=== PATIENT | female | born 1985 | race Caucasian/White ===

== ENCOUNTER → 2021-08-07 | Outpatient (CLI) | payer OTHER ==
[~2021-08-07] MED LIST: DEXT15TA PO; MELA10CA PO
[2021-08-07 13:55] LABS: BASO # 0.1 x10^3/uL (0.0-0.2); BASO % 1 % (0-3); EOS # 0.1 x10^3/uL (0.0-0.7); EOS % 1 % (0-3); HEMATOCRIT 39.2 % (36.0-47.0); HEMOGLOBIN 13.5 g/dL (12.0-15.5); LYMPH # 2.8 x10^3/uL (1.0-4.8); LYMPH % 36 % (24-48); MEAN CORPUSCULAR HEMOGLOBIN 29 pg (25-35); MEAN CORPUSCULAR HGB CONC 34 g/dL (31-37); MEAN CORPUSCULAR VOLUME 84 fL (79-100); MONO # 0.6 x10^3/uL (0.0-1.1); MONO % 7 % (0-9); NEUT # 4.4 x10^3/uL (1.8-7.7); NEUT % 55 % (31-73); PLATELET COUNT 373 x10^3/uL (140-400); RED BLOOD COUNT 4.65 x10^6/uL (3.50-5.40); RED CELL DISTRIBUTION WIDTH 13.8 % (11.5-14.5); WHITE BLOOD COUNT 7.9 x10^3/uL (4.0-11.0)
[2021-08-07 14:02] LABS: BACTERIA,URINE FEW /HPF (0-FEW); RBC,URINE 0 /HPF (0-2); WBC,URINE OCC /HPF (0-4)
[2021-08-07 14:17] LABS: ALBUMIN 3.8 g/dL (3.4-5.0); CALCIUM 8.8 mg/dL (8.5-10.1); CREATININE 0.8 mg/dL (0.6-1.0); GFR 81.2; POTASSIUM 3.7 mmol/L (3.5-5.1); TOTAL BILIRUBIN 0.6 mg/dL (0.2-1.0); TOTAL PROTEIN 7.7 g/dL (6.4-8.2)
== END ==
LOC: SURGPAT 13:24
PROVIDERS: ATTEND Obstetrics & Gynecology
DX: Z01.812 Encounter for preprocedural laboratory examination (principal); N94.6 Dysmenorrhea, unspecified; R93.89 Abnormal findings on diagnostic imaging of other specified body structures
CPT/HCPCS: 36415; 80053; 81001; 85025

== ENCOUNTER 2021-08-19 06:20 | Observation (INO) | payer OTHER ==
[2021-08-07 14:00] VITALS: BP 116/55
[~2021-08-19] VITALS: Ht 172.7 cm; Wt 85.0 kg
[2021-08-19] VITALS (14 sets, daily range): BP systolic 89–119; BP diastolic 33–69
[~2021-08-19 06:20] MED LIST changes: +HYDROmorphone 2 MG/ML INJ. IVP PRN; +IV RINGERS,LACTATED 1000ML 1,000 ML IV SCH; +MORPHINE SULFATE 2 MG/ML INJ. IVP PRN; +PROCHLORPERAZINE 10 MG/2 ML VIAL. IVP PRN; +SCOPOLAMINE 1.5MG PATCH. TD ONE; +fentaNYL PF VIAL 100 MCG/2 ML VIAL IVP PRN
[2021-08-19] MEDS ORDERED: INDIGOTINDISULFONATE SODIUM 40 MG/5 ML AMPUL. ONE (06:57)
[2021-08-19] MEDS ORDERED: ESTROGENS, CONJ VAGINAL CREAM 30GM TUBE. ONE (06:57)
[2021-08-19] MEDS ORDERED: BUPIVACAINE-EPI 0.25%-1:200000 MPF 30 ML VIAL. ONE (06:57)
[2021-08-19] MEDS ORDERED: fentaNYL PF VIAL 250 MCG/5 ML VIAL ONE (07:06)
[2021-08-19] MEDS ORDERED: ONDANSETRON PF 4 MG/2 ML VIAL. ONE (07:06)
[2021-08-19] MEDS ORDERED: ROCURONIUM 50 MG/5 ML VIAL. ONE ×2 (07:06→09:03)
[2021-08-19] MEDS ORDERED: MIDAZOLAM HCL/PF 2 MG/2 ML VIAL. ONE (07:06)
[2021-08-19] MEDS ORDERED: LIDOCAINE 2% PF 5 ML VIAL. ONE (07:06)
[2021-08-19] MEDS ORDERED: PROPOFOL 10 MG/ML (20ML) VIAL. IV ONE (07:06)
[2021-08-19] MEDS ORDERED: DEXAMETHASONE SOD PHOS 4 MG/ML VIAL ONE (07:06)
[2021-08-19] MEDS ORDERED: NEOSTIGMINE METHYLSULFATE 5 MG/5 ML SYRINGE. ONE (09:08)
[2021-08-19] MEDS ORDERED: GLYCOPYRROLATE 1 MG/5 ML VIAL. ONE (09:08)
[2021-08-19] MEDS ORDERED: MORPHINE SULFATE 10 MG/ML VIAL. ONE (09:51)
[2021-08-19] MEDS ORDERED: SEVOFLURANE > 120 MINUTES. IH ONE (09:52)
--- NOTE | 2021-08-19 09:55 | PDOC4 ---
BRIEF OPERATIVE NOTE Date: August 19, 2021 Pre-Op Diagnosis pelvic pain, cyclic pain, s/p endometrial ablation, cervical stenosis Post-Op Diagnosis same Procedure Performed LAVH, bilateral salpingectomy Surgeon Dr. Ortega Quality Control Coordinator SOFIA Nolasco Anesthesiologist Dr. Macario Anesthesia Type: General Blood Loss 100cc IV Fluid 1700cc Urine Output 200cc clear Specimens Obtained cervix, uterus, bilateral tubes Findings RV uterus, mild adhesions to post uterus, normal bilateral tubes and ovaries Complications none Operative Note [id number] SONIA ORTEGA MD August 19, 2021 09:55
[2021-08-19] MEDS ORDERED: ONDANSETRON PF 4 MG/2 ML VIAL. IV PRN (10:00)
[2021-08-19] MEDS ORDERED: MAGNESIUM HYDROXIDE 2,400 MG/30 ML ORAL.SUSP. PO PRN (10:00)
[2021-08-19] MEDS ORDERED: CALCIUM CARBONATE 500 MG TAB.CHEW PO PRN (10:00)
[2021-08-19] MEDS ORDERED: MORPHINE SULFATE 2 MG/ML INJ. IV PRN (10:00)
[2021-08-19] MEDS ORDERED: 0.9 % SODIUM CHLORIDE 10 ML DISP.SYRIN. IV PRN (10:00)
[2021-08-19] MEDS ORDERED: diphenhydrAMINE HCL 25 MG CAPSULE PO PRN (10:00)
[2021-08-19] MEDS ORDERED: oxyCODONE/APAP 5/325 1 TAB TABLET PO PRN (10:00)
[2021-08-19] MEDS ORDERED: NALOXONE 0.4 MG/ML VIAL. IV PRN (10:00)
[2021-08-19] MEDS ORDERED: diphenhydrAMINE 50 MG/ML VIAL IV PRN (10:00)
[2021-08-19] MEDS ORDERED: LACTULOSE 20 GM/30 ML SOLUTION. PO PRN (10:00)
[2021-08-19] MEDS ORDERED: SIMETHICONE 80 MG TAB.CHEW PO PRN (10:00)
[2021-08-19] MEDS ORDERED: MAG HYDROX/ALUMINUM HYD/SIMETH 30 ML ORAL.SUSP PO PRN (10:00)
[2021-08-19] MEDS ORDERED: HYDROcodone/APAP 5/325MG 1 TAB TABLET PO PRN (10:00)
[2021-08-19] MEDS ORDERED: ZOLPIDEM 5 MG TABLET. PO PRN (10:00)
--- NOTE | 2021-08-19 11:10 | NUR ---
Pt. arrives to floor from OR PACU via bed, pt. is alert and oriented x 4 but tired. Pt. denies pain at this time. PT. assessed and oriented to room and call light. PT. VSS on room air, bradycardia noted from report from PACU pt. states this is normal range for her.
--- NOTE | 2021-08-19 15:41 | NUR ---
RN speaks to Dr. Hinds, discuss pt. condition and pt.'s desire to go home, pt vag packing removed, pt. has been up to void 2x and is tolerating PO. Dr. Hinds states ok to discharge at this time.
--- NOTE | 2021-08-19 16:20 | NUR ---
Pt. discharges from unit at 1620, RN reviews discharge instructions with pt. Pt. is alert oriented on room air, denies pain, Vss. Any questions are answered at this time by RN. Pt. discharges with and belongings at 1620.
--- NOTE | 2021-08-19 17:15 | OP ---
DATE OF SURGERY: 08/19/2021 PREOPERATIVE DIAGNOSES: Pelvic pain with cyclic pain after an endometrial ablation, no significant bleeding and found to have cervical stenosis. POSTOPERATIVE DIAGNOSES: Pelvic pain with cyclic pain after an endometrial ablation, no significant bleeding and found to have cervical stenosis. PROCEDURE: Laparoscopic-assisted vaginal hysterectomy, bilateral salpingectomy. SURGEON: Isabel Hinds MD CORPORATE TECHNICAL RECRUITER: SOFIA Nolasco. ANESTHESIOLOGIST: Meño Macario MD ANESTHESIA: General. BLOOD LOSS: 100 mL. URINE OUTPUT: 200 mL clear via Shipley catheter. IV FLUIDS: 1700 mL of crystalloid. SPECIMENS: Cervix, uterus, bilateral tubes. FINDINGS: A retroverted uterus, mild adhesions to the posterior uterus and adhesed and thin bladder and anterior to the uterus, normal bilateral tubes and ovaries. COMPLICATIONS: None. PACKING: She has vaginal packing and Premarin cream in at the very end. DESCRIPTION OF PROCEDURE: This patient was taken to the operating room where general anesthesia was placed. The patient was placed in dorsal lithotomy position in Devyn stirrups. The patient's abdomen and vagina were both prepped and draped in the normal sterile fashion and a Shipley catheter was inserted under sterile technique. Upon my arrival, a timeout was performed. Once everyone agreed on the patient, the site, the procedure, and the antibiotics, the procedure was initiated. A bivalve speculum was placed in the patient's vagina. A single-tooth tenaculum was used to grasp the anterior lip of the cervix. 10 mL of 0.25% with was used to circumferentially inject around the cervix for both hemodissection and hemostatic purposes later. The Valtchev uterine manipulator was placed through the endocervical os, locked on the single tooth tenaculum and the bivalve speculum was then removed. Top gloves were discarded and changed. Attention was then turned to the abdomen where a small infraumbilical skin incision was made. A curved Olivia was used to dissect through the subcuticular layer to the fascia. The 5 mm Visiport was used to directly enter the abdominal cavity. Opening patient pressure was 3-4 mmHg. Carbon dioxide gas was used to then appropriately insufflate the abdominal cavity to maintain a pressure of 15 mmHg. Overhead lights were dimmed and the patient was placed in Trendelenburg position. At this point, right and left lower quadrant ports were placed under direct visualization after transilluminating the abdominal wall. There were no adhesions on the inside, finding an area clear of any vasculature making a small incision and placing the 5 mm Visiport under direct visualization, 4-5 mL of air were placed in the trocar cuff. The camera was moved laterally to look at the umbilical port. Once it was in and clear, it was also insufflated with the 4-5 mL of air in the trocar cuff. At this point, smoke evac was hooked to one port. The gas was hooked to the other lateral port to leave the camera clear. Trendelenburg position revealed normal tubes and ovaries, a small retroverted uterus, small posterior adhesions that were filmy and peeled off. When the uterus was elevated, the posterior cul-de-sac was clear. Tubes and ovaries were elevated. Both ureters were seen coursing and peristalsing easily and on both pelvic sidewalls. She wished to retain ovaries, so elevating the left tube, staying above the ovary below the tube, a salpingectomy was done. Part of the tube, the distal part came off, so it was placed in the posterior cul-de-sac. The right tube was elevated going above the ovary below the tube, a full salpingectomy was done, crossing the right uteroovarian pedicle and the right round ligament with the LigaSure, cauterizing and cutting, then going back to the left side and crossing the left round ligament and the left uteroovarian pedicle as well, cauterizing and cutting with the LigaSure. Once this was done, the uterus was pushed cephalad. The bladder flap was created sharply with the monopolar hook and gently peeled down, you could see the Shipley bulb, the wall was so thin even before we did the bladder flap, was just on the lower uterine area, so the bladder flap was created sharply and gently pulled down. The uterines were obtained on the patient's right side and then staying inside this and hugging the posterior cervix going through the cardinal and broad ligaments, cauterizing and cutting and then crossing contralaterally and hugging the cervix and uterus getting the uterines and staying inside this pedicle through the cardinal and broad down to the level of the uterosacrals with two or three bites through the cardinal and broad with the LigaSure, cauterizing and cutting. Uterus was completely blanched and clear. All adhesions were taken out. The ovaries remained per patient request. So at this point, all instruments were removed from the abdomen and attention was turned vaginally. The single tooth and Valtchev were removed. A weighted speculum was placed in the patient's vagina. Thyroid Skyler clamps were placed on the anterior and posterior lips of the cervix respectively. A scalpel was used to make a circumferential incision in the cervix, the cervix was elevated, and the posterior cul-de-sac was sharply entered with curved Henao scissors. A #0 Vicryl stitch was used to secure the posterior peritoneum here to the vaginal cuff, securing uterosacral ligament to the vaginal cuff, tagging it with a curved Olivia clamp and cutting and passing the needle off. The short weighted vaginal speculum was removed and replaced with the long weighted Grace speculum in the posterior cul-de-sac. The anterior bladder peritoneum was gently pushed up with a 4 x 4 and we got in on the patient's right side, placing the curved Vicente here getting the right uterosacral ligaments, double clamping them with curved Nikhil's, cutting with curved Henao scissors, suture ligating x2 with 0 Vicryl, taking the second one through the vaginal cuff, securing uterosacral ligament to the vaginal cuff, tagging it with a straight Olivia clamp and cutting and passing the needle off. The entire right side was free. The left uterosacral ligaments were also doubly clamped with curved Heaneys, cut with curved Henao scissors, suture ligated x2 with 0 Vicryl. Second one was taken through the vaginal cuff again securing uterosacral ligament to the vaginal cuff, tagging it with a straight Olivia clamp, cutting and passing the needle off. Once this was done, the left side was done. The only thing left was the remainder of the bladder flap anteriorly. The uterus was then inverted. The bladder flap was taken down with the Metzenbaum scissors sharply and then bluntly just gently peeled off until the cervix, uterus, right tube were delivered and the left tube with that piece in the posterior cul-de-sac that we did fish out and sent altogether for permanent pathology. The anterior bladder peritoneum was grasped with a long Allis here. The long Grace speculum was removed and replaced with the short weighted vaginal speculum in the vagina. A sponge stick was used to examine the pedicles. A full length 2-0 Vicryl was taken through the anterior bladder peritoneum, right uterosacral ligament, posterior peritoneum and left uterosacral ligament, thus closing the peritoneum in a pursestring like fashion. Once this was done, the right and left uterosacral tags were clipped. The cuff was closed in an anterior to posterior running locked fashion and tied to the posterior cuff tag. There was some slight bleeding on the right side of the cuff and an interrupted stitch was placed with excellent results. I went ahead and put some Premarin cream and vaginal packing in. All sponge, lap and needle counts were correct x2 by OR personnel. All gloves were discarded and changed before going above. The overhead lights were re-dimmed. The patient was placed back in Trendelenburg again. The gas was reinsufflated. Copious irrigation revealed hemostasis. She had some very slight oozing from the inferior cuff, nothing that was overtly bleeding. Right and left pericolic gutters were clear. There was very scant adhesions on the right side from a prior appendectomy likely. Bowel was grossly normal, so Tisseel was placed over this area and then Cornell. Nothing welled up over the powdery Cornell. It stayed white. Gas was even released and it stayed powdery white. Air was taken out of all 3 port sites. The umbilical one actually came out, so I put the camera in the right lower quadrant, watched the left one come out. The umbilical one was clear. All gas was released from the remaining port and I did leave the camera in and watch it come out. All 3 port sites were closed with 4-0 nylon at the skin and injected with 10 more mL of 0.25% with Marcaine at the end. The patient was awakened from anesthesia. The Shipley was taken out and she has been brought to recovery room in stable condition. YIFAN/MARCOS OLIVAREZ: Robert TID: [id number]
--- NOTE | 2021-08-24 14:21 | PATHOLOGY ---
[facility] Accession Number: [id number] . 01 Material submitted: . uterus - CERVIX, UTERUS AND BILATERAL FALLOPIAN TUBES . 01 Clinical history: . PELVIC PAIN, DYSMENORRHEA, ENDOMETRIAL THICKENING LEFT FALLOPIAN TUBE ATTACHED STILL, RIGHT DETACHED . 02 Diagnosis: Uterus and attached left fallopian tube and detached right fallopian tube, laparoscopic assisted vaginal hysterectomy with bilateral salpingectomy: - Chronic cervicitis with squamous metaplasia, focal. - Nabothian cyst, cervix. 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 - Status post endometrial ablation with focal residual proliferative endometrium. - Adenomyosis, uterine corpus, focal. - Serosal endosalpingiosis, bilateral fallopian tubes, focal. LBQ 08/24/2021 1325 Local . 02 Comment: There is no atypia or evidence of malignancy. (JPM/db; 08/24/2021) . 02 Electronically signed: . Tyler Mercado MD, Pathologist NPI- [id number] . 01 Gross description: . Fixative: Formalin Labeled: Cervix, uterus, bilateral fallopian tubes, left fallopian tube still attached Specimen received: Uterus with attached cervix, attached left fallopian tube, and detached right fallopian tube Uterus weight: 108 g Uterus: 9.3 cm fundus to cervix, 5.8 cm cornu to cornu, and 4.5 cm anterior to posterior Serosa: [place]-par[place] with a slight amount of adhesions present Ectocervix: Pale parrish, smooth Cervical os: Slit-like, measuring 1.4 cm Endocervical canal: 2.9 cm Endometrial cavity: 1.6 x 0.3 cm Endometrium: Pale parrish, scarred (consistent with previous ablation) Endometrial thickness: <0.1 cm Myometrium: Par[place]-pink, trabeculated Myometrial thickness: Up to 1.9 cm Lesions/abnormalities: A slight amount of possible adenomyosis is identified Left fallopian tube: 4 g, fimbriated, 4.8 cm in length by 0.5-1.0 cm in diameter Left fallopian tube cut surface: Pinpoint to patent lumen Right fallopian tube: 4 g, fimbriated, 3.2 cm in length by 0.5-0.7 cm in diameter Right fallopian tube cut surface: Patent lumen . Floor Hand sections are submitted as follows: A1 12:00 cervix A2 6:00 cervix A3 serosal adhesions A4 anterior endomyometrium A5 posterior endomyometrium A6 possible adenomyosis A7 left fallopian tube to include fimbria A8 right fallopian tube to include fimbria ([facility]AA; 08/20/2021) QA/[facility] 08/20/2021 0929 Local . 02 Pathologist provided ICD-10: N72, N88.8, N80.0, N94.89 . 02 CPT . 144170 Specimen Comment: A courtesy copy of this report has been sent to [phone], [phone] Specimen Comment: [id number] Specimen Comment: Report sent to / DR RAMOS Performed at: 01 [facility] [address] [place] [address] [address], [place] [id number] MD Alex Siddiqui MD Phone: [phone] Performed at: 02 [facility] [address] [place], [place] [id number] MD Tyler Mercado MD Phone: [phone]
== END 2021-08-19 16:20 | disposition home or self-care (01) ==
LOC: SURG 06:20 → EDUNIT# 07:30 → 3 SO LND 10:00
PROVIDERS: ADMIT Obstetrics & Gynecology; ATTEND Obstetrics & Gynecology
DX: R10.2 Pelvic and perineal pain (principal); Z20.822 Contact with and (suspected) exposure to COVID-19; N32.0 Bladder-neck obstruction; N85.4 Malposition of uterus; Z90.49 Acquired absence of other specified parts of digestive tract; Z79.899 Other long term (current) drug therapy; Z98.890 Other specified postprocedural states
CPT/HCPCS: 36415; 58552; 81025; 86850; 86900; 86901; 88307; A4314; A4364; A4930; A6219; A6402; G0378; G0379; J0690; J1100; J2250; J2270; J2405; J2704; J2710; J3010; J3490; A4351; A4657